=== PATIENT | male | born 1985 | race Caucasian/White ===

== ENCOUNTER 2019-04-22 02:46 | Emergency (ER) | payer BC ==
[~2019-04-22] VITALS: Ht 182.9 cm; Wt 102.1 kg
[2019-04-22 02:50] VITALS: BP_SYST 165
--- NOTE | 2019-04-22 02:57 | NUR ---
Patient to ER bed 4 to gown for evaluation. Side rails up. Report given to Vinita MITCHELL.
--- NOTE | 2019-04-22 02:58 | NUR ---
Ambutory to er [id number] c/o sudden onset sharp constant left side flank pain associated w/ nausea,vomiting and diaphoretic onset x1hr.denies hematuria,dysuria,abd pain,cp,sob.pt history kidney stone.
--- NOTE | 2019-04-22 03:00 | NUR ---
ER at bedside examining patient.
--- NOTE | 2019-04-22 03:14 | NUR ---
# 20 gauge angiocath placed to left ac. Use of asceptic technique. Opsite placed over site. Blood return noted. Blood for lab drawn from site. Flushed with 10 cc of normal saline. No evidence of infiltration noted. Patient tolerated well.
[2019-04-22] MEDS ORDERED: NACL 0.9% 1,000 ML IV ONE (03:15)
[2019-04-22] MEDS ORDERED: KETOROLAC TROMETHAMINE 30 MG VIAL IVP ONE (03:15)
[2019-04-22] MEDS ORDERED: ONDANSETRON HCL 4 MG/2 ML VIAL IVP ONE (03:15)
[2019-04-22] MEDS ORDERED: fentaNYL CITRATE/PF 100 MCG/2 ML AMP IVP ONE (03:30)
--- NOTE | 2019-04-22 03:30 | NUR ---
Pt taken to Radiology awake via gurney.
[2019-04-22 03:43] LABS: BASOPHILS # (AUTO) 0.1 K/uL (0.0-0.2); BASOPHILS % (AUTO) 0.6 % (0.0-2.0); EOSINOPHILS # (AUTO) 0.2 K/uL (0.0-0.4); EOSINOPHILS % (AUTO) 1.6 % (0.0-4.0); HEMATOCRIT 43.5 % (36-54); HEMOGLOBIN 14.3 g/dL (14.0-18.0); LYMPHOCYTES # (AUTO) 2.9 K/uL (1.0-5.5); LYMPHOCYTES % (AUTO) 28.6 % (20.5-51.5); MEAN CORPUSCULAR HEMOGLOBIN 28 pg (27-31); MEAN CORPUSCULAR HGB CONC 33 % (32-36); MEAN CORPUSCULAR VOLUME 86 fL (79.0-98.0); MONOCYTES # (AUTO) 0.8 K/uL (0.0-1.0); MONOCYTES % (AUTO) 8.2 % (1.7-9.3); NEUTROPHILS # (AUTO) 6.3 K/uL (1.8-7.7); PLATELET COUNT (AUTO) 207 K/uL (130-430); RED BLOOD CELL COUNT(AUTO) 5.09 MIL/uL (4.2-6.2); RED CELL DISTRIBUTION WIDTH 13.3 % (9.0-15.0); WHITE BLOOD COUNT (AUTO) 10.3 K/uL (4.8-10.8)
[2019-04-22 03:56] LABS: CALCIUM 9.2 mg/dL (8.4-11.0); CREATININE 0.96 mg/dL (0.55-1.30)
[2019-04-22 04:01] LABS: ALBUMIN 4.3 g/dL (3.4-4.8); TOTAL BILIRUBIN 0.3 mg/dL (0.0-1.0)
[2019-04-22 04:04] LABS: POTASSIUM 2.9 mmol/L (3.5-5.1)
--- NOTE | 2019-04-22 04:05 | NUR ---
Pt back to ER from Radiology awake via rshin.
[2019-04-22] MEDS ORDERED: POTASSIUM CHLORIDE 20 MEQ TAB.PRT.SR PO ONE (04:15)
--- NOTE | 2019-04-22 04:41 | NUR ---
CT result back,notified Dr Arguello.
[2019-04-22 05:05] VITALS: BP_SYST 165
--- NOTE | 2019-04-22 05:05 | NUR ---
Patient given written and verbal discharge instructions and verbalizes understanding. ER MD Dr. Arguello discussed with patient the results and treatment provided. Patient in stable condition. ID arm band removed. Rx of flomax, norco, motrin given. Patient educated on pain management and to follow up with PMD. Pain Scale 0/10. Opportunity for questions provided and answered. Medication side effect fact sheet provided.
== END 2019-04-22 05:05 | disposition home or self-care (01) ==
LOC: SED 02:46
DX: N23 Unspecified renal colic (principal)
CPT/HCPCS: 36415; 74176; 80053; 81002; 85025; 96361; 96374; 96375; 99284; J1885; J2405; J3010; J7030